=== PATIENT | female | born 1985 | race Caucasian/White ===

== ENCOUNTER 2019-10-14 08:30 | Day surgery (SDC) | payer BC, OTHER ==
[2019-10-12 09:07] LABS: HEMATOCRIT 39.8 % (36.0-48.0); HEMOGLOBIN 13.9 g/dL (12-16); MCH 30.8 pg (26.0-34.0); MCHC 34.9 g/dL (31.0-37.0); MCV 88.2 fL (80.0-100.0); MEAN PLATELET VOLUME 10.5 fL (7.4-10.4); RBC 4.51 10x6/uL (4.00-5.40); RDW 12.6 % (11.5-14.5)
[~2019-10-14] VITALS: Ht 172.7 cm; Wt 71.7 kg
[~2019-10-14 08:30] MED LIST: IBUPROFEN600 MG PO; MAGNESIUM OXID250 MG PO; MICROGESTIN FE1 EACH PO; MULTI-DAY VITAM1 TAB PO; PERCOCET 5-3251 TAB PO
[2019-10-14 09:01] VITALS: BP 120/75; Ht 172.7 cm; Wt 71.7 kg
[2019-10-14] MEDS ORDERED: HYDROCODON-ACE1 EA10 PO (10:54)
--- NOTE | 2019-10-14 14:52 | NUR ---
1240 C/O NAUSEA. RX'D WITH ZOFRAN
--- NOTE | 2019-10-15 10:43 | OP ---
PATIENT NAME: LUIS ANGEL ROGERS MEDICAL RECORD: [id number] :[birth year] LOCATION:D.[facility] ADMISSION DATE: SURGEON: SAM MARTÍNEZ MD DATE OF OPERATION: 10/14/2019 PREOPERATIVE DIAGNOSES: Impingement syndrome of the right shoulder. POSTOPERATIVE DIAGNOSES: Impingement syndrome of the right shoulder. PROCEDURES: 1. Arthroscopic distal clavicle excision done through separate incision - 1 cm. 2. Arthroscopic subacromial decompression with acromioplasty and bursectomy. SURGEON: Sam Martínez MD ANESTHESIA: General. INTRAOPERATIVE COMPLICATIONS: None. SUMMARY OF PATHOLOGIC FINDINGS: The patient did not have full thickness rotator cuff tearing, but definitely had excoriation of the coracoacromial ligament as well as the nonarticular bursal surface tearing, very minimal. OPERATIVE SUMMARY IN DETAIL: After obtaining the appropriate preoperative orthopedic surgery consent as well as anesthetic consultation, evaluation and clearance, the patient was brought to the operating room and placed on the operating table in a supine position. After general laryngeal mask airway was administered, the patient was placed in left lateral decubitus position. All pressures points were well padded to include down leg peroneal pad as well as axillary roll. The patient was held firmly to the operating table using the vacuum pack suction system. Right upper extremity and shoulder were prepped and draped in routine sterile fashion. The arm was held in the Arthrex traction boom traction pierre at 30 degrees of forward flexion, 30 degrees of abduction with 10 pounds of traction laterally. At this point, the appropriate timeout was taken and agreed upon by all. Arthroscopy was established in the glenohumeral joint from the posterior portal. Anterior portal was established from the anterior safe interval. Diagnostic arthroscopy showed the patient to have essentially no intraarticular pathology. Attention was then turned to the subacromial space. While on subacromial space, accessory lateral portal was created through which the Gordon surface tissue ablation system was utilized to denude the undersurface of the acromion of all soft tissue elements and release the coracoacromial ligament. A 5-0 barrel bur was used to perform acromioplasty at the level of the acromioclavicular joint. Having completed this, attention was turned to the distal clavicle. A separate anterior arthroscopic portal under direct arthroscopic visualization, distal clavicle was excised for 1 cm. Lastly, the residual bursa and there was a lot of taken down superiorly, anteriorly, laterally as well as posteriorly. Having completed this, arthroscopy portals were closed in routine interrupted fashion using 4-0 Prolene. Sterile dressings were applied. The patient was awakened and taken to recovery room in stable condition. All final needle and sponge counts were correct. TRANSINT:[id number] Voice Confirmation ID: [id number] DOCUMENT ID: [id number] OPERATIVE REPORT [id number] LUIS ANGEL ROGERS MD, SAM TORIBIO at 1043 CC: [id number] DICTATION DATE: 10/14/19 1058 BREADING MACHINE TENDER: 10/14/19 1855 [facility] [place] 10/14/19 [facility] [address] [place] [address]
== END 2019-10-14 13:50 | disposition home or self-care (01) ==
LOC: D.OPS 08:30 → D.PAN 12:30 → D.OPS 12:30
PROVIDERS: Anesthesiology; ATTEND Orthopaedic Surgery
DX: M75.41 Impingement syndrome of right shoulder (principal); M25.511 Pain in right shoulder; M75.111 Incomplete rotator cuff tear or rupture of right shoulder, not specified as traumatic

== ENCOUNTER 2020-02-23 19:04 | Inpatient (IN) | payer BC, OTHER ==
[~2020-02-23] VITALS: Ht 172.7 cm; Wt 68.2 kg
[~2020-02-23 19:04] MED LIST changes: +HYDROCODON-ACE1 EA10 PO
[2020-02-23] MEDS ORDERED: ZITHROMAX TRI-500 MG PO (19:16)
[2020-02-23 19:43] LABS: BILIRUBIN NEGATIVE (NEGATIVE); GLUCOSE NEGATIVE (NEGATIVE); KETONE NEGATIVE (NEGATIVE); NITRITE NEGATIVE (NEGATIVE); RED CELLS - URINE 0-5 /hpf (0-5); WHITE CELLS - URINE >50 /hpf (NEGATIVE)
[2020-02-23 19:44] LABS: BACTERIA MANY /hpf (NEGATIVE)
[2020-02-23 19:50] LABS: BASOPHILS 0.1 % (0-2); EOSINOPHILS 0.3 % (0-7); HEMATOCRIT 38.3 % (36.0-48.0); HEMOGLOBIN 13.1 g/dL (12-16); IMMATURE GRANULOCYTES 0.2 % (0-5); LYMPHOCYTES 6.1 % (15-50); MCH 30.6 pg (26.0-34.0); MCHC 34.2 g/dL (31.0-37.0); MCV 89.5 fL (80.0-100.0); MEAN PLATELET VOLUME 10.8 fL (7.4-10.4); MONOCYTES 13.1 % (2-11); NEUTROPHILS 80.2 % (40-80); PLATELET COUNT 256 10x3/uL (130-400); RBC 4.28 10x6/uL (4.00-5.40); RDW 12.3 % (11.5-14.5); WBC 12.2 10x3/uL (4.8-10.8)
[2020-02-23 20:03] LABS: CALC OSMOLALITY 271 mosm/kg (275-300); CALCIUM 8.5 mg/dL (8.5-10.1); CARBON DIOXIDE 26.5 mmol/L (21.0-32.0); CHLORIDE - SERUM 101 mmol/L (98-107); POTASSIUM - SERUM 3.7 mmol/L (3.5-5.1); SODIUM 134 mmol/L (136-145); UREA NITROGEN 17 mg/dL (7-18); eGFR NON AFRICAN AMERICAN 66 mL/min (90-120)
[2020-02-23 20:07] LABS: GLUCOSE 136 mg/dL (74-106)
[2020-02-23 20:14] LABS: ALBUMIN 3.1 g/dL (3.4-5.0); ALKALINE PHOSPHATASE 56 U/L (30-120); ALT (SGPT) 16 U/L (10-68); BILIRUBIN - TOTAL 0.49 mg/dL (0.2-1.3); C-REACTIVE PROTEIN 10.8 mg/dL (0.0-0.9); PRO BNP 316 pg/mL (0-125); PROTEIN - SERUM 6.9 g/dL (6.4-8.2)
[2020-02-23 20:22] LABS: TROPONIN-I < 0.017 ng/mL (0.000-0.060)
[2020-02-23 22:30] VITALS: BP 109/61
--- NOTE | 2020-02-23 23:20 | NUR ---
AMBULATES INDEPENDENTLY. A&O X 4. REPORTS PAIN LEVEL OF 4/10. VERBALIZED UNDERSTANDING OF CLEAR LIQUID DIET. PT PAMPHLET AND SECURITY CODE PAPER GIVEN. DENIES NEEDS ATTHIS TIME, WILL CONTINUE TO MONITOR
[2020-02-23 23:27] VITALS: BP 107/68
[2020-02-23] MEDS ORDERED: ACETAMINOPHEN500 M1 PO (23:29)
[2020-02-24 00:59] VITALS: BP 115/71; Ht 172.7 cm; Wt 68.2 kg
[2020-02-24 04:00] VITALS: BP 132/76
--- NOTE | 2020-02-24 08:09 | NUR ---
SHE HAD A FEVER THIS AM, C/O OF HEADACHE. PRN PAIN MED GIVEN.
[2020-02-24 08:20] LABS: BASOPHILS 0.2 % (0-2); EOSINOPHILS 0.9 % (0-7); HEMATOCRIT 34.6 % (36.0-48.0); HEMOGLOBIN 11.4 g/dL (12-16); IMMATURE GRANULOCYTES 0.2 % (0-5); LYMPHOCYTES 13.6 % (15-50); MCH 29.5 pg (26.0-34.0); MCHC 32.9 g/dL (31.0-37.0); MCV 89.6 fL (80.0-100.0); MEAN PLATELET VOLUME 11.1 fL (7.4-10.4); MONOCYTES 13.9 % (2-11); NEUTROPHILS 71.2 % (40-80); PLATELET COUNT 253 10x3/uL (130-400); RBC 3.86 10x6/uL (4.00-5.40); RDW 12.4 % (11.5-14.5); WBC 9.8 10x3/uL (4.8-10.8)
[2020-02-24 08:31] LABS: ALBUMIN 2.6 g/dL (3.4-5.0); ALKALINE PHOSPHATASE 48 U/L (30-120); BILIRUBIN - TOTAL 0.36 mg/dL (0.2-1.3); CALC OSMOLALITY 272 mosm/kg (275-300); CHLORIDE - SERUM 103 mmol/L (98-107); CREATININE - SERUM 0.8 mg/dL (0.6-1.3); GLUCOSE 100 mg/dL (74-106); POTASSIUM - SERUM 3.6 mmol/L (3.5-5.1); SODIUM 136 mmol/L (136-145); UREA NITROGEN 15 mg/dL (7-18); eGFR NON AFRICAN AMERICAN 85 mL/min (90-120)
[2020-02-24 08:36] LABS: ALT (SGPT) 11 U/L (10-68)
[2020-02-24 08:45] VITALS: BP 112/64
--- NOTE | 2020-02-24 12:10 | NUR ---
NO SKIN ISSUES OR IMPAIRMENT NOTED.
[2020-02-24 12:12] VITALS: BP 116/67
--- NOTE | 2020-02-24 15:32 | MORECARE ---
CASE MANAGEMENT DISCHARGE SUMMARY PATIENT: LUIS ANGEL ROGERS UNIT: [id number] ADM DATE: 02/23/20 AGE: 35 : 81 SEX: F ROOM/BED: D.2202 AUTHOR: SANTY,DOC PHYSICIAN: REFERRING PHYSICIAN: WALI PEREZ DO DATE OF SERVICE: 02/24/20 Discharge Plan Patient Name: LUIS ANGEL ROGERS Facility: [facility]:[place] : 1985 Planned Disposition: Home or Self Care Anticipated Discharge Date: Discharge Date: Expected LOS: Initial Reviewer: [email or web address] Initial Review Date: 02/23/2020 Generated: 02/24/20 4:31 pm Comments DCP- Discharge Planning Updated by [email or web address]: Arielle Muse on 02/24/20 2:[address] Patient Name: LUIS ANGEL ROGERS Admission Status: ER Accout number: [id number] Admission Date: 02-23-2020 : 1985 Admission Diagnosis: Attending: WALI PEREZ Current LOS: 1 Anticipated DC Date: Planned Disposition: Home or Self Care Primary Insurance: [employer] TRUE BLUE PPO Discharge Planning Comments: CM met with patient to complete initial dc planning assessment. CM educated patient on the CM role and verbal consent given by patient to complete assessment. Patient lives at home with her family where she is independent with care. At discharge patient plans to return home and feels this is a safe discharge. CM discussed availability of home health, rehab services, and medical equipment. Patient denied known discharge needs at this time. CM will continue to follow and will assist as needed with dc plans/needs. Printing Supervisor: Arielle Muse DCPIA - Discharge Planning Initial Assessment Updated by [email or web address]: Arielle Muse on 02/24/20 3:27 pm * Is the patient Alert and Oriented? Yes * How many steps to enter\exit or inside your home? FLIGHT * PCP ADÁN * Pharmacy [facility] [address] * Preadmission Environment Home with Family * ADLs Independent * Equipment None * List name and contact numbers for known caregivers / representatives who currently or will assist patient after discharge: GAUDENCIO ROGERS (SPOUSE) [phone] * Verbal permission to speak to the caregivers and representatives has been obtained from the patient. N/A * Community resources currently utilized None * Additional services required to return to the preadmission environment? No * Can the patient safely return to the preadmission environment? Yes * Has this patient been hospitalized within the prior 30 days at any hospital? No Patient Name: LUIS ANGEL ROGERS Page [id number] at 1532 All edits/amendments must be made on the electronic document DICTATION DATE: 02/24/201530 PIT CLERK: YOVANI 02/24/201530 RPT#: [id number] DC DATE: STATUS: ADM IN [facility] [address] [place] [address] END OF REPORT
[2020-02-24 17:27] VITALS: BP 111/60
[2020-02-24 20:00] VITALS: BP 110/63
--- NOTE | 2020-02-24 20:00 | NUR ---
PATIENT RESTING IN BED WITH LIGHTS OFF. NO S/S OF ACUTE DISTRESS. PATIENT C/O A HEADACHE THAT "HAS BEEN GOING ON SINCE I CAME HERE (HOSPITAL)." PATIENT HAS A LEFT FOREARM NORMAL SALINE @ 200 ML/HR. IV IS PATENT WITHOUT REDNESS, SWELLING, OR TENDERNESS. PATIENT HAS TELEMETRY: 58 SINUS ARRYTHMIA. PATIENT STATES THAT SHE HASN'T DEFICATED IN A WEEK, BUT "THEY HAD GIVEN HER STUFF WITH NO RESULTS". I EXPLAINED THAT [employer] WON'T MAKE YOU DEFICATE RIGHT AWAY, IT WORKS WITH THE WATER IN YOUR BODY TO HELP SOFTEN THE STOOL AND MOVE IT ALONG. CALL LIGHT WITHIN REACH. WILL CONTIUE TO MONITOR.
[2020-02-25] VITALS: BP 124/66
--- NOTE | 2020-02-25 02:55 | NUR ---
I have reviewed this patient and I concur with the Shift Assessment completed by the Licensed Practical Nurse today this shift.
[2020-02-25 04:00] VITALS: BP 115/67
[2020-02-25 04:57] LABS: BASOPHILS 0.3 % (0-2); EOSINOPHILS 1.7 % (0-7); HEMOGLOBIN 10.2 g/dL (12-16); IMMATURE GRANULOCYTES 0.3 % (0-5); LYMPHOCYTES 15.9 % (15-50); MCH 29.2 pg (26.0-34.0); MCHC 32.9 g/dL (31.0-37.0); MCV 88.8 fL (80.0-100.0); MEAN PLATELET VOLUME 10.5 fL (7.4-10.4); NEUTROPHILS 69.8 % (40-80); PLATELET COUNT 225 10x3/uL (130-400); RBC 3.49 10x6/uL (4.00-5.40); RDW 12.3 % (11.5-14.5); WBC 7.6 10x3/uL (4.8-10.8)
[2020-02-25 05:30] LABS: ALBUMIN 2.3 g/dL (3.4-5.0); ALKALINE PHOSPHATASE 44 U/L (30-120); BILIRUBIN - TOTAL 0.41 mg/dL (0.2-1.3); CALC OSMOLALITY 271 mosm/kg (275-300); CALCIUM 7.8 mg/dL (8.5-10.1); CHLORIDE - SERUM 105 mmol/L (98-107); CREATININE - SERUM 0.8 mg/dL (0.6-1.3); GLUCOSE 102 mg/dL (74-106); POTASSIUM - SERUM 3.7 mmol/L (3.5-5.1); PROTEIN - SERUM 5.5 g/dL (6.4-8.2); SODIUM 136 mmol/L (136-145); UREA NITROGEN 12 mg/dL (7-18); eGFR NON AFRICAN AMERICAN 85 mL/min (90-120)
[2020-02-25 05:32] LABS: ALT (SGPT) 16 U/L (10-68)
--- NOTE | 2020-02-25 08:41 | NUR ---
PT RESTING QUIETLY IN BED. RESP EVEN AND UNLABORED. PT REPORTS PAIN 3/10 AT THIS TIME, VOICING DECREASED HEADACHE. PT DOES VOICE NAUSEA AT THIS TIME. ZOFRAN ADMINISTERED AT THIS TIME. IV TO LEFT FOREARM WITH NS @ 125ML/HR INFUSING VIA PUMP. SITE WITHOUT REDNESS OR EDEMA. DENIES FURTHER NEEDS AT THIS TIME. CL WITHIN REACH. ENCOURAGED TO CALL WITH NEEDS. CONTINUE POC
[2020-02-25 08:56] VITALS: BP 118/67
--- NOTE | 2020-02-25 10:50 | NUR ---
ENTERED PT ROOM SHE VOICES CONTINUED NAUSEA. PT DENIES VOMITING AT THIS TIME. DISCUSSED NEED FOR IN AND OUT CATH PER MD ORDERS FOR A CLEAN URINE SAMPLE. PT VOICES UNDERSTANDING, BUT REPORTS TO JUST HAVING A BM AND VOIDING AND REQUEST TO WAIT A LITTLE BIT BEFORE DOING. TO WAIT 20-30 MINS PER PT REQUEST TO DO IN AND OUT CATH. CL WITHIN REACH. ENCOURAGED TO CALL WITH NEEDS.
[2020-02-25 13:36] VITALS: BP 116/78
[2020-02-25 18:31] VITALS: BP 115/80
[2020-02-25 20:00] VITALS: BP 122/78
--- NOTE | 2020-02-25 21:00 | NUR ---
RESTING QUEITLY WITH NO DISTESS NOTED. RESP UNLABORED. IV TO LFA INTACT WITHOUT REDNESS OR EDEMA NOTED. CL IN REACH. SR UP X 2
--- NOTE | 2020-02-26 03:38 | NUR ---
I have reviewed this patient and I concur with the Shift Assessment completed by the Licensed Practical Nurse today this shift.
[2020-02-26 04:00] VITALS: BP 131/74
[2020-02-26 06:38] LABS: BASOPHILS 0.3 % (0-2); EOSINOPHILS 2.3 % (0-7); HEMATOCRIT 33.9 % (36.0-48.0); HEMOGLOBIN 11.5 g/dL (12-16); IMMATURE GRANULOCYTES 0.5 % (0-5); LYMPHOCYTES 18.4 % (15-50); MCH 29.8 pg (26.0-34.0); MCHC 33.9 g/dL (31.0-37.0); MCV 87.8 fL (80.0-100.0); MEAN PLATELET VOLUME 10.7 fL (7.4-10.4); MONOCYTES 9.6 % (2-11); NEUTROPHILS 68.9 % (40-80); RBC 3.86 10x6/uL (4.00-5.40); RDW 12.1 % (11.5-14.5)
[2020-02-26 06:44] LABS: PLATELET COUNT 320 10x3/uL (130-400)
[2020-02-26 07:02] LABS: ALBUMIN 2.8 g/dL (3.4-5.0); ANION GAP 11.9 mmol/L (8-16); BILIRUBIN - TOTAL 0.4 mg/dL (0.2-1.3); CALCIUM 8.3 mg/dL (8.5-10.1); CARBON DIOXIDE 24.5 mmol/L (21.0-32.0); POTASSIUM - SERUM 3.4 mmol/L (3.5-5.1); PROTEIN - SERUM 6.3 g/dL (6.4-8.2)
[2020-02-26 07:03] LABS: CREATININE - SERUM 1.1 mg/dL (0.6-1.3)
--- NOTE | 2020-02-26 07:15 | NUR ---
REC'D IN BED AWAKE AND ALERT. RESP EVEN AND UNLABORED WITH NO DISTRESS NOTED. CN EXPRESS NEEDS AND WANTS. NO C/O NOTED OR VOICED. ASSESSMENT COMPLETED. C/L IN REACH AT BEDSIDE.
[2020-02-26 08:20] VITALS: BP 118/76
[2020-02-26 12:11] VITALS: BP 132/76
[2020-02-26] MEDS ORDERED: LEVAQUIN750 MG PO (13:02)
[2020-02-26] MEDS ORDERED: ZOFRAN ODT4 MG/UDTAB PO (13:02)
--- NOTE | 2020-02-26 13:53 | MORECARE ---
CASE MANAGEMENT DISCHARGE SUMMARY PATIENT: LUIS ANGEL ROGERS UNIT: [id number] ADM DATE: 02/24/20 AGE: 35 : 81 SEX: F ROOM/BED: D.2202 AUTHOR: LV MAEDRA PHYSICIAN: REFERRING PHYSICIAN: WALI PEREZ DO DATE OF SERVICE: 02/26/20 Discharge Plan Patient Name: LUIS ANGEL ROGERS Facility: [facility]:[place] : 1985 Planned Disposition: Home or Self Care Anticipated Discharge Date: Discharge Date: Expected LOS: Initial Reviewer: [email or web address] Initial Review Date: 02/23/2020 Generated: 02/26/20 2:52 pm Comments DCP- Discharge Planning Updated by [email or web address]: Kim Lewis on 02/26/20 12:[address] Patient Name: LUIS ANGEL ORGERS Encounter No: [id number] : 1985 Primary Insurance: [employer] TRUE BLUE PPO Anticipated DC Date: Planned Disposition: Home or Self Care External Planned Provider: : DCP follow-up note: Patient and family in agreement with discharge plan. No changes to plan. Case management will follow and assist as needed. Kim Lewis DCP- Discharge Planning Updated by [email or web address]: Arielle Muse on 02/24/20 2:[address] Patient Name: LUIS ANGEL ROGERS Admission Status: ER Accout number: [id number] Admission Date: 02-23-2020 : 1985 Admission Diagnosis: Attending: WALI PEREZ Current LOS: 1 Anticipated DC Date: Planned Disposition: Home or Self Care Primary Insurance: [employer] TRUE BLUE PPO Discharge Planning Comments: CM met with patient to complete initial dc planning assessment. CM educated patient on the CM role and verbal consent given by patient to complete assessment. Patient lives at home with her family where she is independent with care. At discharge patient plans to return home and feels this is a safe discharge. CM discussed availability of home health, rehab services, and medical equipment. Patient denied known discharge needs at this time. CM will continue to follow and will assist as needed with dc plans/needs. Recoil [place] Winder: Arielle Muse DCPIA - Discharge Planning Initial Assessment Updated by [email or web address]: Arielle Muse on 02/24/20 3:27 pm * Is the patient Alert and Oriented? Yes * How many steps to enter\exit or inside your home? FLIGHT * PCP ADÁN * Pharmacy [address] * Preadmission Environment Home with Family * ADLs Independent * Equipment None * List name and contact numbers for known caregivers / representatives who currently or will assist patient after discharge: GAUDENCIO ROGERS (SPOUSE) [phone] * Verbal permission to speak to the caregivers and representatives has been obtained from the patient. N/A * Community resources currently utilized None * Additional services required to return to the preadmission environment? No * Can the patient safely return to the preadmission environment? Yes * Has this patient been hospitalized within the prior 30 days at any hospital? No Last DP export: 02/24/20 2:32 p Patient Name: LUIS ANGEL ROGERS Page [phone] at 1353 All edits/amendments must be made on the electronic document DICTATION DATE: 02/26/20 1353 EXTRUSION TECHNICIAN: YOVANI 02/26/20 1353 RPT#: [id number] DC DATE: STATUS: ADM IN [facility] [address] [place] [address] END OF REPORT
--- NOTE | 2020-02-28 08:18 | MORECARE ---
CASE MANAGEMENT DISCHARGE SUMMARY PATIENT: LUIS ANGEL ROGERS UNIT: [id number] ADM DATE: 02/24/20 AGE: 35 : 81 SEX: F ROOM/BED: D.2202 AUTHOR: SANTYDOC PHYSICIAN: REFERRING PHYSICIAN: WALI PEREZ DO DATE OF SERVICE: 02/28/20 Discharge Plan Patient Name: LUIS ANGEL ROGERS Facility: [facility]:[place] : 1985 Planned Disposition: Home or Self Care Anticipated Discharge Date: Discharge Date: 02/26/2020 Expected LOS: Initial Reviewer: [email or web address] Initial Review Date: 02/23/2020 Generated: 02/28/20 9:18 am Comments DCP- Discharge Planning Updated by [email or web address]: Kim Lewis on 02/26/20 12:[address] Patient Name: LUIS ANGEL ROGERS Encounter No: [id number] : 1985 Primary Insurance: [employer] TRUE BLUE PPO Anticipated DC Date: Planned Disposition: Home or Self Care External Planned Provider: : DCP follow-up note: Patient and family in agreement with discharge plan. No changes to plan. Case management will follow and assist as needed. Kim Lewis DCP- Discharge Planning Updated by [email or web address]: Arielle Muse on 02/24/20 2:[address] Patient Name: LUIS ANGEL ROGERS Admission Status: ER Accout number: [id number] Admission Date: 02-23-2020 : 1985 Admission Diagnosis: Attending: WALI PEREZ Current LOS: 1 Anticipated DC Date: Planned Disposition: Home or Self Care Primary Insurance: [employer] BLUE PPO Discharge Planning Comments: CM met with patient to complete initial dc planning assessment. CM educated patient on the CM role and verbal consent given by patient to complete assessment. Patient lives at home with her family where she is independent with care. At discharge patient plans to return home and feels this is a safe discharge. CM discussed availability of home health, rehab services, and medical equipment. Patient denied known discharge needs at this time. CM will continue to follow and will assist as needed with dc plans/needs. Test Case Developer: Arielle Muse DCPIA - Discharge Planning Initial Assessment Updated by [email or web address]: Arielle Muse on 02/24/20 3:27 pm * Is the patient Alert and Oriented? Yes * How many steps to enter\exit or inside your home? FLIGHT * PCP ADÁN * [facility] [address] * Preadmission Environment Home with Family * ADLs Independent * Equipment None * List name and contact numbers for known caregivers / representatives who currently or will assist patient after discharge: GAUDENCIO ROGERS (SPOUSE) [phone] * Verbal permission to speak to the caregivers and representatives has been obtained from the patient. N/A * Community resources currently utilized None * Additional services required to return to the preadmission environment? No * Can the patient safely return to the preadmission environment? Yes * Has this patient been hospitalized within the prior 30 days at any hospital? No Last DP export: 02/26/20 12:53 p Patient Name: LUIS ANGEL ROGERS Page [phone] at 0818 All edits/amendments must be made on the electronic document DICTATION DATE: 02/28/20817 DIRECTOR E LEARNING: YOVANI 02/28/20817 RPT#: [id number] DC DATE:02/26/20 STATUS: DIS IN [facility] [address] [place] [address] END OF REPORT
== END 2020-02-26 14:59 | disposition home or self-care (01) | DRG 690 ==
LOC: D.ER 19:04 → D.MS 21:22 → OBSVTIME 21:22 → D.MS 21:22
PROVIDERS: Family Medicine; ADMIT Family Medicine; ATTEND Family Medicine
DX: N10 Acute pyelonephritis (principal); E87.1 Hypo-osmolality and hyponatremia; E86.0 Dehydration; R11.2 Nausea with vomiting, unspecified